=== PATIENT | male | born 2000 | race Caucasian/White ===

== ENCOUNTER 2023-08-02 00:15 | Emergency (ER) | payer BC, MEDICAID, OTHER ==
[~2023-08-02] VITALS: Ht 182.9 cm; Wt 127.3 kg
[2023-08-02] MEDS ORDERED: BENZ200C70 PO (01:05)
[2023-08-02] MEDS: BENZONATATE 100MG CAPSULE PO ONE (01:09)
[2023-08-02] MEDS: ALBUTEROL 90 MCG/ACT 8GM HFA INHALER INH ONE (01:15)
[2023-08-02 01:30] VITALS: BP 140/84; TEMP 97.8; O2SAT 94
== END 2023-08-02 01:47 | disposition home or self-care (01) ==
LOC: M ED 00:15
DX: J20.9 Acute bronchitis, unspecified (principal); Z79.2 Long term (current) use of antibiotics

== ENCOUNTER 2023-11-11 07:37 | Emergency (ER) | payer OTHER, BC ==
[~2023-11-11] VITALS: Ht 182.9 cm; Wt 140.2 kg
[~2023-11-11 07:37] MED LIST: BENZ200C70 PO
[2023-11-11] MEDS: NS 1,000 ML IV ONE (08:21)
[2023-11-11] MEDS: PANTOPRAZOLE 40MG VIAL IV ONE (08:21)
[2023-11-11 08:24] LABS: BASO # 0.1 10^3/uL (0.0-0.2); BASO % 0.9 % (0.0-1.0); EOS # 0.5 10^3/uL (0.0-0.5); EOS % 5.8 % (0.0-3.0); HEMATOCRIT 41.4 % (42.0-52.0); HEMOGLOBIN 14.1 g/dl (13.5-17.5); LYMPH # 1.4 10^3/uL (1.5-5.0); LYMPH % 17.8 % (24.0-44.0); MEAN CORPUSCULAR HGB CONC 34.1 g/dl (32.0-36.5); MONO # 0.8 10^3/uL (0.0-0.8); NEUTROPHILS # 5.1 10^3/uL (1.5-8.5); NEUTROPHILS % 64.7 % (36.0-66.0); PLATELET COUNT, AUTOMATED 265 10^3/uL (150-450); RED BLOOD COUNT 4.55 10^6/uL (4.30-6.10); WHITE BLOOD COUNT 7.9 10^3/uL (4.0-10.0)
[2023-11-11] MEDS ORDERED: ISOVUE-370 76% 100ML VIAL As Ordered ONE (08:26)
[2023-11-11] MEDS: ACETAMINOPHEN *IV* 1,000 MG in IV 1 EA IV ONE (08:26)
[2023-11-11 08:49] LABS: LIPASE 36 U/L (12-53)
[2023-11-11 08:51] LABS: ALKALINE PHOSPHATASE 66 U/L (46-116); ALT/SGPT 33 U/L (7.0-40); AST/SGOT 29 U/L (<34); BILIRUBIN,DIRECT 0.1 MG/DL (<0.4); BILIRUBIN,TOTAL 0.3 MG/DL (0.3-1.2); BLOOD UREA NITROGEN 9 MG/DL (9-23); CALCIUM LEVEL 8.6 MG/DL (8.5-10.1); CARBON DIOXIDE LEVEL 25 MMOL/L (20-31); CHLORIDE LEVEL 109 MMOL/L (98-107); CREATININE FOR GFR 0.86 MG/DL (0.70-1.30); GLOMERULAR FILTRATION RATE > 60.0 (>60); GLUCOSE, FASTING 89 MG/DL (60-100); POTASSIUM SERUM 4.2 MMOL/L (3.5-5.1); SODIUM LEVEL 139 MMOL/L (136-145); TOTAL PROTEIN 6.9 G/DL (5.7-8.2)
[2023-11-11 09:15] LABS: INR 0.98; PARTIAL THROMBOPLASTIN TIME 29.1 SECONDS (24.8-34.2); PROTHROMBIN TIME 12.7 SECONDS (12.5-14.5)
[2023-11-11] MEDS: GASTROGRAFIN SOLUTION 30ML PO SCH (09:45)
[2023-11-11 11:49] VITALS: BP 137/80; TEMP 96.6; O2SAT 97
[2023-11-11] MEDS ORDERED: MIRA3350 PO (12:27)
[2023-11-11] MEDS ORDERED: SENN1TAB85 PO (12:27)
== END 2023-11-11 12:38 | disposition home or self-care (01) ==
LOC: M ED 07:37
DX: K59.00 Constipation, unspecified (principal); F12.10 Cannabis abuse, uncomplicated; Z88.5 Allergy status to narcotic agent; Z88.8 Allergy status to other drugs, medicaments and biological substances
CPT/HCPCS: 74177; 80048; 80076; 83605; 83690; 85025; 85610; 85730; 86140; 96365; 96366; 96374; 99284; J0131; J2470; Q9963; Q9967